=== PATIENT | female | born 1995 | race African-American/Black ===

== ENCOUNTER 2022-06-23 23:15 | Emergency (ER) | payer OTHER ==
[~2022-06-23] VITALS: Ht 167.6 cm; Wt 104.5 kg
[2022-06-24] MEDS ORDERED: IBUP-2070 PO (00:49)
[2022-06-24] MEDS ORDERED: METH-659 PO (00:49)
[2022-06-24 01:00] VITALS: BP 119/74
[2022-06-24] MEDS ORDERED: METHOCARBAMOL 500 MG TABLET PO ONE (01:00)
[2022-06-24] MEDS ORDERED: KETOROLAC TROMETHAMINE 60 MG/2 ML VIAL IM ONE (01:00)
== END 2022-06-24 05:00 | disposition home or self-care (01) ==
LOC: EMS 23:17
DX: M53.3 Sacrococcygeal disorders, not elsewhere classified (principal)
CPT/HCPCS: 96372; 99283; J1885